=== PATIENT | female | born 1990 | race Two or more races ===

== ENCOUNTER 2020-07-28 20:06 | Emergency (ER) | payer SELFPAY ==
[~2020-07-28] VITALS: Ht 157.5 cm; Wt 84.0 kg
--- NOTE | 2020-07-28 20:24 | PHYS DOC ---
General Adult EDM: Chief Complaint: ABDOMINAL PAIN HPI: HPI: Patient is a 30 year old female no significant medical history who presents to the ED today complaining of mild intermittent left lower quadrant abdominal pain radiating to the left flank region, symptoms began yesterday. Patient denies any nausea vomiting or diarrhea. She states she had a bowel movement today but she could be constipated. Denies anything specifically exacerbating or relieving her symptoms. Patient is Occitan-speaking and interpretation is provided by one of the ED employees Review of Systems: Review of Systems: Constitutional: Denies fever or chills. [] Eyes: Denies change in visual acuity. [] HENT: Denies nasal congestion or sore throat. [] Respiratory: Denies cough or shortness of breath. [] Cardiovascular: Denies chest pain or edema. [] GI: Reports left lower quadrant abdominal pain, denies nausea, vomiting, b loody stools or diarrhea. [] : Denies dysuria. [] Musculoskeletal: Denies back pain or joint pain. [] Integument: Denies rash. [] Neurologic: Denies headache, focal weakness or sensory changes. [] Psychiatric: Denies depression or anxiety. [] Heart Score: Risk Factors: Risk Factors: DM, Current or recent (<one month) smoker, HTN, HLP, family history of CAD, obesity. Risk Scores: Score 0 - 3: 2.5% MACE over next 6 weeks - Discharge Home Score 4 - 6: 20.3% MACE over next 6 weeks - Admit for Clinical Observation Score 7 - 10: 72.7% MACE over next 6 weeks - Early Invasive Strategies Allergies: Allergies: Allergies Coded Allergies Type Severity Reaction Last Updated Verified No Known Drug Allergies 11/27/15 No Physical Exam: PE: Constitutional: Well developed, well nourished, no acute distress, non-toxic appearance. [] HENT: Normocephalic, atraumatic, bilateral external ears normal, oropharynx moist, no oral exudates, nose normal. [] Eyes: PERRLA, EOMI, conjunctiva normal, no discharge. [] Neck: Normal range of motion, no tenderness, supple, no stridor. [] Cardiovascular:Heart rate regular rhythm, no murmur [] Lungs & Thorax: Bilateral breath sounds clear to auscultation [] Abdomen: Bowel sounds normal, soft, slight tenderness to the left lower quadrant, no right upper quadrant or right lower quadrant tenderness, no masses, no pulsatile masses. [] Skin: Warm, dry, no erythema, no rash. [] Back: No tenderness, no CVA tenderness. [] Extremities: No tenderness, no cyanosis, no clubbing, ROM intact, no edema. [] Neurologic: Alert and oriented X 3, normal motor function, normal sensory function, no focal deficits noted. [] Psychologic: Affect normal, judgement normal, mood normal. [] EKG: EKG: [] Radiology/Procedures: Radiology/Procedures: []PATIENT: DOUG FERRARA BACCOUNT: [id number]#: [id number] : 1990 LOCATION: ER AGE: 30 SEX: F EXAM STATUS: REG ER ORD. PHYSICIAN: YULIA SOLARES APRN REASON: abd pain constipation? PROCEDURE: ABDOMEN SUPINE & UPRIGHT Examination: Supine and upright views of the abdomen HISTORY: History of abdominal pain, constipation COMPARISON: None available. FINDINGS: The evaluation of the small bowel is limited due to paucity of gas in the small bowel. Feces and gas noted in the colon. IMPRESSION: Nonspecific bowel gas pattern. Electronically signed by: Anders Jones MD (07/28/2020 9:03 PM) [id number] DICTATED and SIGNED BY: ANDERS JONES MD DATE: 07/28/[id number] 0 Course & Med Decision Making: Course & Med Decision Making Pertinent Labs and Imaging studies reviewed. (See chart for details) This is a 30-year-old female patient presenting to the ED today with left lower quadrant abdominal pain radiating to the left flank region since yesterday. Positive for UTI, also noted for constipation on x-ray. Started on mag citrate in the ED, discharged on cephalexin. Discussed dietary measures as well as exercise measures for preventing and managing constipation Dragon Disclaimer: Dragon Disclaimer: This electronic medical record was generated, in whole or in part, using a voice recognition dictation system. Departure Departure Impression: Primary Impression: Constipation Qualified Codes: K59.00 - Constipation, unspecified Additional Impression: Urinary tract infection Qualified Codes: N39.0 - Urinary tract infection, site not specified Disposition: 01 HOME SELF CARE/HOMELESS Condition: STABLE Referrals: JENIFER LAMB DO (PCP) Patient Instructions: Constipation, Adult, Urinary Tract Infection Additional Instructions: You have urinary tract infection as well as constipation going up on your x-ray. Take the prescribed antibiotics until completed. Please push fluids and increase your dietary fiber intake, consider exercising. Take the prescribed MiraLAX every day to prevent constipation. Scripts Polyethylene Glycol 3350 (MIRALAX) 17 Gm Powd.pack 1 PACKET PO DAILY for constipation for 2 Days, #2 PACKET 0 Refills dissolve in water Prov: YULIA SOLARES APRN 07/28/20 Magnesium Citrate (MAGNESIUM CITRATE) 296 Ml Solution 296 ML PO ONCE, #296 ML Prov: YULIA SOLARES APRN 07/28/20 Cephalexin (CEPHALEXIN) 500 Mg Tablet 1 TAB PO BID, #14 TAB Prov: YULIA SOLARES APRN 07/28/20 YULIA SOLARES APRN Jul 28, 2020 20:24
[2020-07-28 20:31] LABS: BILIRUBIN,URINE SMALL (NEG); CLARITY,URINE CLEAR; COLOR,URINE ORANGE; NITRITE,URINE POSITIVE (NEG); PH,URINE 5.5 (<5.0-8.0); PROTEIN,URINE NEGATIVE (NEG-TRACE)
[2020-07-28 20:58] LABS: BACTERIA,URINE FEW /HPF (0-FEW); WBC,URINE 20-40 /HPF (0-4)
--- NOTE | 2020-07-28 21:17 | RAD ---
Examination: Supine and upright views of the abdomen HISTORY: History of abdominal pain, constipation COMPARISON: None available. FINDINGS: The evaluation of the small bowel is limited due to paucity of gas in the small bowel. Feces and gas noted in the colon. IMPRESSION: Nonspecific bowel gas pattern. Electronically signed by: Anders Jones MD (07/28/2020 9:03 PM) [id number]
[2020-07-28] MEDS ORDERED: MAGN296S68 PO (21:23)
[2020-07-28] MEDS ORDERED: CEPH500T PO (21:23)
[2020-07-28] MEDS ORDERED: POLY17PO29 PO (21:23)
[2020-07-28] MEDS ORDERED: BISACODYL 5 MG TABLET.DR. PO ONE (21:30)
[2020-07-28] MEDS ORDERED: MAGNESIUM CITRATE 296 ML SOLUTION. PO ONE (21:30)
[2020-07-28 21:50] VITALS: BP 146/88
== END 2020-07-28 21:55 | disposition home or self-care (01) ==
LOC: ER 20:06
DX: N39.0 Urinary tract infection, site not specified (principal); K59.00 Constipation, unspecified; R10.32 Left lower quadrant pain
CPT/HCPCS: 74021; 81001; 81025; 87086; 99284